=== PATIENT | female | born 1990 | race Caucasian/White ===

== ENCOUNTER 2023-03-05 20:17 | Inpatient (IN) ==
[2023-03-05 22:03] LABS: Albumin Globulin Ratio 1.5 (0.9-2); Albumin Level 4.3 gm/dl (3.4-5.0); BUN Creatinine Ratio 18.3 (10-20); Bilirubin,Total 0.5 mg/dl (0.2-1.0); Calcium 9.4 mg/dl (8.6-10.3); Est GFR (African American) 128.8 ml/min; Est GFR (Non-African American) 111.1 ml/min; Globulin 2.9 gm/dl (2.5-4.0); Potassium 3.9 mmol/L (3.5-5.1); Total Protein 7.2 gm/dl (6.0-8.3)
[2023-03-05 22:16] LABS: Specific Gravity Urine 1.021 (1.000-1.030)
[2023-03-05 22:17] LABS: Appearance Urine Slightly Cloudy (Clear); Color Urine Orange
[2023-03-05 22:23] LABS: Bacteria Urine 1+ (Negative)
[2023-03-05] MEDS ORDERED: LORazepam 2 MG/1 ML VIAL IV STA (22:26)
[2023-03-05 22:36] LABS: Basophils # (auto) 0.05 K/uL (0-0.2); Basophils % (auto) 0.5 %; Hematocrit (blood only) 43.2 % (37.0-47.0); Immature Granulocytes # (auto) 0.04 K/uL (0.01-0.20); Immature Granulocytes % (auto) 0.4 %; Lymphocytes # (auto) 3.06 K/uL (1.2-3.4); Lymphocytes % (auto) 30.2 %; Mean Corpuscular Hemoglobin 30.9 pg (25.0-34.0); Mean Corpuscular Hgb Conc 34.7 g/dL (32.0-36.0); Mean Corpuscular Volume 89.1 fL (80.0-100.0); Mean Platelet Volume 10.2 fL (9.4-12.4); Monocytes # (auto) 0.65 K/uL (0.11-0.59); Monocytes % (auto) 6.4 %; Neutrophils # (auto) 6.03 K/uL (1.40-6.50); Neutrophils % (auto) 59.5 %; Platelet Count 269 K/uL (130-400); RDW Coefficient of Variation 12.6 % (11.5-14.5); RDW Standard Deviation 41.2 fL (36.4-46.3); Red Blood Count 4.85 M/uL (4.20-5.40); White Blood Count 10.13 K/ul (4.8-10.8)
[2023-03-05] MEDS ORDERED: ONDANSETRON INJ 2 MG/ML 2 ML VIAL ONE (22:44)
[2023-03-05] MEDS: HYDROmorphone INJ 0.5 MG/0.5 ML SYR IV PRN ×2 (22:49→23:37)
--- NOTE | 2023-03-06 00:05 | Emergency Department Note ---
History of Present Illness General Chief complaint: Back Injury/Pain Stated complaint: BACK PAIN,BLOOD IN CATHETER Time Seen by Provider: 03/05/23 22:16 History of Present Illness Maximum Pain Intensity: 7 This 32-year-old female presents ER complaining of severe back pain with leg weakness that is gotten progressively worse. Patient states many years ago she had back surgery down to [place]. She went to [facility] yesterday and had a Gutierrez placed as she had urinary incontinence. Patient denies fall, chest pain, dyspnea, fevers, IV drug abuse. Home Medications Medication Instructions Recorded Confirmed Type citalopram 20 mg tablet 20 mg PO DAILY 01/12/23 03/05/23 History lorazepam 0.5 mg tablet 0.5 mg PO TID 01/12/23 03/05/23 History magnesium oxide 400 mg (241.3 mg 400 mg PO DAILY 01/12/23 03/05/23 History magnesium) tablet prazosin 2 mg capsule 2 mg PO HS 01/12/23 03/05/23 History omeprazole 40 mg capsule,delayed 40 mg PO DAILY #30 caps 01/29/23 03/05/23 Rx release aripiprazole 15 mg tablet 15 mg PO HS 03/05/23 03/05/23 History clindamycin HCl 150 mg capsule 150 mg PO TID 03/05/23 03/05/23 History gabapentin 300 mg capsule 300 mg PO UD 03/05/23 03/05/23 History meclizine 25 mg tablet 25 mg PO Q6 PRN Dizziness 03/05/23 03/05/23 History nicotine 21 mg/24 hr daily 1 patch transdermal UD 03/05/23 03/05/23 History transdermal patch sodium chloride 0.65 % nasal spray 1 spray intranasal UD 03/05/23 03/05/23 History aerosol (Deep Sea Nasal) Allergies Allergy/AdvReac Type Severity Reaction Status Date / Time amoxicillin Allergy Intermediate Hives Verified 01/29/23 15:28 Penicillins Allergy Intermediate Hives Verified 01/29/23 15:28 ketorolac [From Toradol] AdvReac Intermediate Vomiting Verified 01/29/23 15:28 Past Med/Surg History Medical History Cocaine abuse in remission Depression Drug-seeking behavior Malingering Marijuana use Surgical History H/O tubal ligation History of left oophorectomy Family History Aunt Colorectal cancer Ovarian cancer Denies family history of Prostate cancer Myocardial infarction Breast cancer Social History Smoking Status: Current every day smoker Tobacco Type: E-cigarettes / Vaping Preferred Language: Belarusian Feels Safe at Home: No Review of Systems A total of 10 systems reviewed and were otherwise negative Physical Exam Vital Signs Vital Signs - 24 hr 03/05/23 20:22 03/05/23 20:57 03/05/23 21:30 Temperature 36.6 C Temperature Source Temporal Artery Scan Pulse Rate 106 H 79 Pulse Rate [Apical] 82 Pulse Rate from SpO2 Sensor 80 Pulse Rhythm [Apical] Regular Pulse Strength [Apical] Normal Respiratory Rate 20 19 20 Respiratory Effort / Characteristics Non-Labored Non-Labored Respiratory Depth Normal Normal Respiratory Pattern Regular Blood Pressure 132/89 112/79 Blood Pressure [Right Arm] 114/81 Blood Pressure Mean 103 90 Blood Pressure Mean [Right Arm] 92 Blood Pressure Position [Right Arm] Sitting Pulse Oximetry 98 95 96 Oxygen Delivery Method Room Air Room Air Sepsis Recent Fever Within 48 Hours No Sepsis New/Unexplained Change in Mental Status No Sepsis Action Taken by Nursing No Action Required 03/05/23 22:00 03/05/23 21:06 03/06/23 01:21 Temperature Temperature Source Pulse Rate 77 79 108 H Pulse Rate [Apical] Pulse Rate from SpO2 Sensor 77 Pulse Rhythm [Apical] Pulse Strength [Apical] Respiratory Rate 19 Respiratory Effort / Characteristics Respiratory Depth Respiratory Pattern Blood Pressure 121/76 Blood Pressure [Right Arm] Blood Pressure Mean 91 Blood Pressure Mean [Right Arm] Blood Pressure Position [Right Arm] Pulse Oximetry 96 Oxygen Delivery Method Sepsis Recent Fever Within 48 Hours Sepsis New/Unexplained Change in Mental Status Sepsis Action Taken by Nursing VITALS: Vitals are noted on the nurse's note and reviewed by myself. Vital signs stable. GENERAL: White female, in no acute distress, nondiaphoretic, well-developed well-nourished. SKIN: The skin was without rashes, erythema, edema, or bruising. There is no tenting of the skin. Capillary reflex less than 2 seconds. HEAD: Normocephalic atraumatic. EARS: External auditory canals clear, EYES: Pupils equal round and reactive to light and accommodation. Conjunctivae without injection, sclerae without icterus. Extraocular movements intact. NOSE: Patent, turbinates without inflammation or discharge. MOUTH: Mucous membranes moist. Pharynx without erythema or exudate. Uvula midline. Airway patent. Tongue does not deviate. NECK: Supple without nuchal rigidity. No lymphadenopathy. No thyromegaly. Cervical spine is nontender. No JVD. HEART: Regular rate and rhythm LUNGS: Clear to auscultation bilaterally without wheezes, rales or rhonchi. No retractions or accessory muscle use. ABDOMEN: Positive bowel sounds x 4. Normal tympanic percussion. Soft, nontender, without masses or organomegaly. Fischer sign negative. No guarding or rebound tenderness. No CVA tenderness MUSCULOSKELETAL: No muscle atrophy, erythema, or edema noted. 5-5 strength throughout. Patient plantarflex and dorsiflex NEURO: Patient was alert and oriented to person place and time. Normal sensation to light and sharp touch. No focal neurological deficits. Course Administered Medications Hydromorphone HCl (Hydromorphone Inj 0.5 Mg/0.5 Ml Syr) 0.5 mg IV Q15M PRN PRN Reason: Pain Stop: 03/19/23 22:25 Last Admin: 03/06/23 01:25 Dose: 0.5 mg Documented By: Admin: 03/05/23 23:37 Dose: 0.5 mg Documented By: Admin: 03/05/23 22:49 Dose: 0.5 mg Documented By: CAYDEN Discontinued Medications Lorazepam (Lorazepam 2 Mg/1 Ml Vial) 1 mg IV NOW STA Stop: 03/05/23 22:27 Last Admin: 03/05/23 22:55 Dose: 1 mg Documented By: CAYDEN Ondansetron HCl (Ondansetron Inj 2 Mg/Ml 2 Ml Vial) Confirm Administered Dose 4 mg .ROUTE .STK-MED ONE Stop: 03/05/23 22:45 Last Admin: 03/05/23 22:46 Dose: 4 mg Documented By: CAYDEN Medical Decision Making Medical Records Attestation: I reviewed the patient's medical records. Home Medications Current Medication List: was personally reviewed by me Laboratory Data Attestation: I reviewed the patient's lab results. 03/05/23 21:14 03/05/23 21:14 Lab Results 03/05/23 03/05/23 03/05/23 Range/Units 21:14 21:14 21:53 WBC 10.13 (4.8-10.8) K/ul RBC 4.85 (4.20-5.40) M/uL Hgb 15.0 (12.0-16.0) g/dl Hct 43.2 (37.0-47.0) % MCV 89.1 (80.0-100.0) fL MCH 30.9 (25.0-34.0) pg MCHC 34.7 (32.0-36.0) g/dL RDW Std Deviation 41.2 (36.4-46.3) fL RDW Coeff of Sandra 12.6 (11.5-14.5) % Plt Count 269 (130-400) K/uL MPV 10.2 (9.4-12.4) fL Immature Gran % (Auto) 0.4 % Neut % (Auto) 59.5 % Lymph % (Auto) 30.2 % [place] % (Auto) 6.4 % Eos % (Auto) 3.0 % Baso % (Auto) 0.5 % Neut # (Auto) 6.03 (1.40-6.50) K/uL Lymph # (Auto) 3.06 (1.2-3.4) K/uL [place] # (Auto) 0.65 H (0.11-0.59) K/uL Eos # (Auto) 0.30 (0-0.50) K/uL Baso # (Auto) 0.05 (0-0.2) K/uL Immature Gran # (Auto) 0.04 (0.01-0.20) K/uL Sodium 139 (136-145) mmol/L Potassium 3.9 (3.5-5.1) mmol/L Chloride 106 (98-107) mmol/L Carbon Dioxide 26 (21-32) mmol/L Anion Gap 7 (3-11) BUN 13 (6-23) mg/dl Creatinine 0.71 (0.6-1.2) mg/dl Est Cr Clr Drug Dosing 124.0 ml/min Est GFR ( Amer) 128.8 ml/min Est GFR (Non-Af Amer) 111.1 ml/min BUN/Creatinine Ratio 18.3 (10-20) Glucose 106 H (70-99(Fasting)) mg/dl Calcium 9.4 (8.6-10.3) mg/dl Total Bilirubin 0.5 (0.2-1.0) mg/dl AST 10 L (13-39) U/L ALT 13 (7-52) U/L Alkaline Phosphatase 64 (34-104) U/L Total Protein 7.2 (6.0-8.3) gm/dl Albumin 4.3 (3.4-5.0) gm/dl Globulin 2.9 (2.5-4.0) gm/dl Albumin/Globulin Ratio 1.5 (0.9-2) Urine Color [place] Urine Appearance Slightly Cloudy (Clear) Urine pH (4.5-7.5) Ur Specific [place] 1.021 (1.000-1.030) Urine Protein (Negative) Urine Glucose (UA) (Negative) Urine Ketones (Negative) Urine Blood (Negative) Urine Nitrite (Negative) Urine Bilirubin (Negative) Urine Urobilinogen (Negative) Ur Leukocyte Esterase (Negative) Urine RBC 10-30 H (0-4) /hpf Urine WBC 5-10 H (0-5) /hpf Ur Epithelial Cells 5-10 H (0-5) /lpf Urine Bacteria 1+ H (Negative) Urine Yeast Present A (None Prsent) POC Ur Test (NEG) 03/05/23 Range/Units 21:56 WBC (4.8-10.8) K/ul RBC (4.20-5.40) M/uL Hgb (12.0-16.0) g/dl Hct (37.0-47.0) % MCV (80.0-100.0) fL MCH (25.0-34.0) pg MCHC (32.0-36.0) g/dL RDW Std Deviation (36.4-46.3) fL RDW Coeff of Sandra (11.5-14.5) % Plt Count (130-400) K/uL MPV (9.4-12.4) fL Immature Gran % (Auto) % Neut % (Auto) % Lymph % (Auto) % [place] % (Auto) % Eos % (Auto) % Baso % (Auto) % Neut # (Auto) (1.40-6.50) K/uL Lymph # (Auto) (1.2-3.4) K/uL [place] # (Auto) (0.11-0.59) K/uL Eos # (Auto) (0-0.50) K/uL Baso # (Auto) (0-0.2) K/uL Immature Gran # (Auto) (0.01-0.20) K/uL Sodium (136-145) mmol/L Potassium (3.5-5.1) mmol/L Chloride (98-107) mmol/L Carbon Dioxide (21-32) mmol/L Anion Gap (3-11) BUN (6-23) mg/dl Creatinine (0.6-1.2) mg/dl Est Cr Clr Drug Dosing ml/min Est GFR ( Amer) ml/min Est GFR (Non-Af Amer) ml/min BUN/Creatinine Ratio (10-20) Glucose (70-99(Fasting)) mg/dl Calcium (8.6-10.3) mg/dl Total Bilirubin (0.2-1.0) mg/dl AST (13-39) U/L ALT (7-52) U/L Alkaline Phosphatase (34-104) U/L Total Protein (6.0-8.3) gm/dl Albumin (3.4-5.0) gm/dl Globulin (2.5-4.0) gm/dl Albumin/Globulin Ratio (0.9-2) Urine Color Urine Appearance (Clear) Urine pH (4.5-7.5) Ur Specific [place] (1.000-1.030) Urine Protein (Negative) Urine Glucose (UA) (Negative) Urine Ketones (Negative) Urine Blood (Negative) Urine Nitrite (Negative) Urine Bilirubin (Negative) Urine Urobilinogen (Negative) Ur Leukocyte Esterase (Negative) Urine RBC (0-4) /hpf Urine WBC (0-5) /hpf Ur Epithelial Cells (0-5) /lpf Urine Bacteria (Negative) Urine Yeast (None Prsent) POC Ur Test NEG (NEG) Imaging Data Attestation: I personally reviewed and interpreted this imaging study as follows: Radiologist's Impression: Lumbar Spine MRI 03/05/23 22:26 Exam(s): MRI L SPINE Without Contrast EXAM: MR Lumbar Spine Without Intravenous Contrast CLINICAL HISTORY: Reason for exam: cant walk. TECHNIQUE: Magnetic resonance images of the lumbar spine without intravenous contrast in multiple planes. COMPARISON: No relevant prior studies available. FINDINGS: Vertebrae: There are 5 lumbar type vertebral bodies. No acute fracture. Normal alignment with preservation of vertebral body heights. No abnormal bone marrow signal. Spinal cord: The conus ends at T12-L1. Soft tissues: Unremarkable. DISCS/SPINAL CANAL/NEURAL FORAMINA: L1-L2: Unremarkable. No significant disc disease. No stenosis. L2-L3: Unremarkable. No significant disc disease. No stenosis. L3-L4: Unremarkable. No significant disc disease. No stenosis. L4-L5: Unremarkable. No significant disc disease. No stenosis. L5-S1: Disc desiccation with central posterior disc protrusion without significant spinal canal or neural foramen stenosis. IMPRESSION: No acute findings in the lumbar spine. No evidence of cauda equina syndrome. Electronically signed by: Scar Hale M.D. 03/06/23 00:36 AM MDM Narrative Prior records/ancillary studies reviewed. Triage Nursing notes reviewed. Additional history obtained from nursing. The patient's history was concerning for back pain. Differential diagnosis: Etiologies such as musculoskeletal, disc herniation, fracture, aortic disease, metastatic disease, cord compression, discitis, infection, renal colic, gastrointestinal, acute exacerbation of chronic back pain, sciatica, cauda equina, as well as others were entertained. Physical findings: As above. ER treatment provided: Dilaudid Ativan Zofran ordered On reassessment the patient felt better. Diagnostics interpreted by me: The labs Independently Interpreted by myself revealed no worrisome leukocytosis, negative urine, negative hCG Imaging studies: MRI of the L-spine was reviewed by myself and read by radiology with no signs of surgical emergency per my independent interpretation Brain MRI ordered for possible MS at time of admission Consultation: A consultation was placed with hospitalist. The case was discussed and diagnostics were reviewed. Patient will be evaluated for admission. This appears to be consistent with intractable back pain with difficulty a mbulating and frequent falls. Labs and diagnostics were independent interpreted by myself. Radiology read the MRI. Patient was able to move all extremities. She had a Gutierrez placed at [facility] yesterday. She is complaining of intractable back pain. Medicine was consulted and the case was discussed. Patient will be admitted to the medical service. By the evaluation outlined above emergent etiologies such as fracture, aortic disease, metastatic disease, infection, renal colic, gastrointestinal, cord compression, cauda equina, as well as others were deemed relatively unlikely. The pt informed about the findings as listed above. All questions were answered and pleased with the treatment. The chart was completed utilizing [employer] Speech voice recognition software. Grammatical errors, random word insertions, pronoun errors, and incomplete sentences are an occassional consequence of this system due to software limitations, ambient noise, and hardware issues. Any formal questions or concerns about the content, text, or information contained within the body of this dictation should be directly addressed to the physician environmental services assistant for clarification. Impression & Plan Lumbar radiculopathy, Intractable back pain Discharge Plan Visit Data Chief Complaint: Back Injury/Pain Stated Complaint: BACK PAIN,BLOOD IN CATHETER ED Provider: Elizabeth Snyder ED Midlevel Provider: Coco Reed Discharge Problem: Lumbar radiculopathy, Intractable back pain Patient Disposition: Being Evaluated by Hospitalist Condition: Fair Forms Stand Alone Forms: [facility] Prescriptions Prescriptions: No Action omeprazole 40 mg capsule,delayed release(DR/EC) 40 mg PO DAILY Qty: 30 2RF citalopram 20 mg tablet 20 mg PO DAILY magnesium oxide 400 mg (241.3 mg magnesium) tablet 400 mg PO DAILY lorazepam 0.5 mg tablet 0.5 mg PO TID prazosin 2 mg capsule 2 mg PO HS gabapentin 300 mg capsule 300 mg PO UD aripiprazole 15 mg tablet 15 mg PO HS clindamycin HCl 150 mg capsule 150 mg PO TID Rx Instructions: take for 10 days...start 02/26/23 nicotine 21 mg/24 hr patch 24 hour 1 patch transdermal UD Deep Sea Nasal 0.65 % aerosol,spray 1 spray INTRANASAL UD meclizine 25 mg tablet 25 mg PO Q6 PRN (Reason: Dizziness) Referrals Referrals: Cammy Walker DO [Primary Care Provider] -
--- NOTE | 2023-03-06 00:36 | Magnetic Resonance Report ---
Exam(s): MRI L SPINE Without Contrast EXAM: MR Lumbar Spine Without Intravenous Contrast CLINICAL HISTORY: Reason for exam: cant walk. TECHNIQUE: Magnetic resonance images of the lumbar spine without intravenous contrast in multiple planes. COMPARISON: No relevant prior studies available. FINDINGS: Vertebrae: There are 5 lumbar type vertebral bodies. No acute fracture. Normal alignment with preservation of vertebral body heights. No abnormal bone marrow signal. Spinal cord: The conus ends at T12-L1. Soft tissues: Unremarkable. DISCS/SPINAL CANAL/NEURAL FORAMINA: L1-L2: Unremarkable. No significant disc disease. No stenosis. L2-L3: Unremarkable. No significant disc disease. No stenosis. L3-L4: Unremarkable. No significant disc disease. No stenosis. L4-L5: Unremarkable. No significant disc disease. No stenosis. L5-S1: Disc desiccation with central posterior disc protrusion without significant spinal canal or neural foramen stenosis. IMPRESSION: No acute findings in the lumbar spine. No evidence of cauda equina syndrome. Electronically signed by: Scar Hale M.D. 03/06/23 00:36 AM
[2023-03-06] MEDS: HYDROmorphone INJ 0.5 MG/0.5 ML SYR IV PRN ×6 (01:25→14:45)
--- NOTE | 2023-03-06 02:24 | History & Physical Report ---
Date of Service March 06, 2023 Assessment & Plan (1) Low back pain: Plan: 32 F with history of lumbar radiculopathy who presents with worsening back pain and incontinence since yesterday. Lower back pain/urinary incontinence -Acute. Afebrile. No leukocytosis. MRI imaging of lumbar spine has been negative for herniation, stenosis or other structural abnormality. -Differential includes lumbar stenosis/radiculopathy, cauda equina or other neuromuscularly degenerative process (i.e. multiple sclerosis). Unclear given absence of MRI findings (lumbar spine, brain). -History of back surgery done last year, though do not have those records for review. -Presented to [place] ED yesterday with complaints of back pain and urinary incontinence MRI lumbar spine, T-spine done there both negative for acute abnormality. Similar findings on MRI lumbar spine done here. -PDMP shows recent prescription for oxycodone 5 mg, and Percocet since 02/17/2023. -S/p IV hydromorphone, lorazepam in the ED. * Admit to MedSurg * MRI brain pending * Procalcitonin, CRP pending * Pain control with IV Tylenol 1000 mg every 8 hours as needed; as needed IV Dilaudid for breakthrough pain. * IV Zofran as needed for nausea * Gutierrez catheter in place for incontinence * Consider orthopedic, neurology consult GERD -Controlled on omeprazole 40 mg daily. * Pantoprazole 40 mg daily Other chronic conditions: Continue home meds. Code: Full code Dispo: Med-Surg FEN/GI: NPO. DVT Prophylaxis: None PT/OT: No Consults: Case Management: (2) Incontinence of urine: (3) GERD (gastroesophageal reflux disease): (4) Lumbar radiculopathy: History of Present Illness Primary Care Provider: DO Jaquelin Packhann is a 32-year-old woman with past medical history of lumbar radiculopathy s/p back surgery last year, GERD, malingering and drug abuse in remission, who presents today with severe progressive back pain. She denies recent trauma, recent IV drug use, or fevers. She was evaluated at [facility] yesterday for urinary incontinence Gutierrez was eventually placed for management. In the ED, vitals were notable for mild sinus tachycardia in the low 100s. MRI of the lumbar spine was negative for any acute abnormality. She received IV lorazepam 1 mg, and Zofran for nausea as well as IV Dilaudid. Hospitalist service was then consulted for admission. On admission, she reports 9/10 low back pain, nausea, and right anteromedial thigh numbness. She denies headache, chest pain, dysuria. Allergies Allergy/AdvReac Type Severity Reaction Status Date / Time amoxicillin Allergy Intermediate Hives Verified 01/29/23 15:28 Penicillins Allergy Intermediate Hives Verified 01/29/23 15:28 ketorolac [From Toradol] AdvReac Intermediate Vomiting Verified 01/29/23 15:28 Home Medications Medication Instructions Recorded Confirmed Type citalopram 20 mg tablet 20 mg PO DAILY 01/12/23 03/05/23 History lorazepam 0.5 mg tablet 0.5 mg PO TID 01/12/23 03/05/23 History magnesium oxide 400 mg (241.3 mg 400 mg PO DAILY 01/12/23 03/05/23 History magnesium) tablet prazosin 2 mg capsule 2 mg PO HS 01/12/23 03/05/23 History omeprazole 40 mg capsule,delayed 40 mg PO DAILY #30 caps 01/29/23 03/05/23 Rx release aripiprazole 15 mg tablet 15 mg PO HS 03/05/23 03/05/23 History clindamycin HCl 150 mg capsule 150 mg PO TID 03/05/23 03/05/23 History gabapentin 300 mg capsule 300 mg PO UD 03/05/23 03/05/23 History meclizine 25 mg tablet 25 mg PO Q6 PRN Dizziness 03/05/23 03/05/23 History nicotine 21 mg/24 hr daily 1 patch transdermal UD 03/05/23 03/05/23 History transdermal patch sodium chloride 0.65 % nasal spray 1 spray intranasal UD 03/05/23 03/05/23 History aerosol (Deep Sea Nasal) Past Med/Surg History Medical History Cocaine abuse in remission Depression Drug-seeking behavior Malingering Marijuana use Surgical History H/O tubal ligation History of left oophorectomy Family History Aunt Colorectal cancer Ovarian cancer Denies family history of Prostate cancer Myocardial infarction Breast cancer Social History Smoking Status: Current every day smoker Tobacco Type: E-cigarettes / Vaping Second Hand Exposure: No; Do You Dip or Chew Tobacco: No; Hx Alcohol Use: No Hx Substance Use: No Preferred Language: Malay Communication Ability: Effective News Correspondent Required: No Beliefs That Will Affect Care: None Current Living Situation: Family Feels Safe at Home: Yes Assistive Devices: None Review of Systems Review of Systems: All systems reviewed & are unremarkable except as noted in HPI & below Physical Exam Physical Exam: General: No acute distress. Gutierrez catheter in place. HEENT: PERRLA. Normal conjunctiva, anicteric sclera. Oropharynx normal. Respiratory: Normal respiratory effort, CTABL. Cardiovascular: RRR without murmurs, gallops, or rubs. No pedal edema. Back: Midline spinal tenderness to palpation elicited from the level of L4-S1. Neuro: Alert and oriented x3. 4/5 flexion strength at right hip. 4/5 right hand diesel mechanic apprentice strength. CN II-XII intact bilaterally. Results & Data Results & Data Vital Signs (Past 12 Hours) Vital Signs Temp Pulse Pulse Resp BP BP Pulse Ox 03/06/23 01:21 108 H 03/05/23 21:06 79 03/05/23 22:00 77 19 121/76 96 03/05/23 21:30 79 20 112/79 96 03/05/23 20:57 82 19 114/81 95 03/05/23 20:22 36.6 C 106 H 20 132/89 98 O2 Del Method 03/06/23 01:21 03/05/23 21:06 03/05/23 22:00 03/05/23 21:30 03/05/23 20:57 Room Air 03/05/23 20:22 Room Air Laboratory Results 03/05/23 03/05/23 03/05/23 Range/Units 21:56 21:53 21:14 WBC (4.8-10.8) K/ul RBC (4.20-5.40) M/uL Hgb (12.0-16.0) g/dl Hct (37.0-47.0) % MCV (80.0-100.0) fL MCH (25.0-34.0) pg MCHC (32.0-36.0) g/dL RDW Std Deviation (36.4-46.3) fL RDW Coeff of Sandra (11.5-14.5) % Plt Count (130-400) K/uL MPV (9.4-12.4) fL Immature Gran % (Auto) % Neut % (Auto) % Lymph % (Auto) % [place] % (Auto) % Eos % (Auto) % Baso % (Auto) % Neut # (Auto) (1.40-6.50) K/uL Lymph # (Auto) (1.2-3.4) K/uL [place] # (Auto) (0.11-0.59) K/uL Eos # (Auto) (0-0.50) K/uL Baso # (Auto) (0-0.2) K/uL Immature Gran # (Auto) (0.01-0.20) K/uL Sodium 139 (136-145) mmol/L Potassium 3.9 (3.5-5.1) mmol/L Chloride 106 (98-107) mmol/L Carbon Dioxide 26 (21-32) mmol/L Anion Gap 7 (3-11) BUN 13 (6-23) mg/dl Creatinine 0.71 (0.6-1.2) mg/dl Est Cr Clr Drug Dosing 124.0 ml/min Est GFR ( Amer) 128.8 ml/min Est GFR (Non-Af Amer) 111.1 ml/min BUN/Creatinine Ratio 18.3 (10-20) Glucose 106 H (70-99(Fasting)) mg/dl Calcium 9.4 (8.6-10.3) mg/dl Total Bilirubin 0.5 (0.2-1.0) mg/dl AST 10 L (13-39) U/L ALT 13 (7-52) U/L Alkaline Phosphatase 64 (34-104) U/L Total Protein 7.2 (6.0-8.3) gm/dl Albumin 4.3 (3.4-5.0) gm/dl Globulin 2.9 (2.5-4.0) gm/dl Albumin/Globulin Ratio 1.5 (0.9-2) Urine Color [place] Urine Appearance Slightly Cloudy (Clear) Urine pH (4.5-7.5) Ur Specific Silva 1.021 (1.000-1.030) Urine Protein (Negative) Urine Glucose (UA) (Negative) Urine Ketones (Negative) Urine Blood (Negative) Urine Nitrite (Negative) Urine Bilirubin (Negative) Urine Urobilinogen (Negative) Ur Leukocyte Esterase (Negative) Urine RBC 10-30 H (0-4) /hpf Urine WBC 5-10 H (0-5) /hpf Ur Epithelial Cells 5-10 H (0-5) /lpf Urine Bacteria 1+ H (Negative) Urine Yeast Present A (None Prsent) POC Ur Test NEG (NEG) 03/05/23 Range/Units 21:14 WBC 10.13 (4.8-10.8) K/ul RBC 4.85 (4.20-5.40) M/uL Hgb 15.0 (12.0-16.0) g/dl Hct 43.2 (37.0-47.0) % MCV 89.1 (80.0-100.0) fL MCH 30.9 (25.0-34.0) pg MCHC 34.7 (32.0-36.0) g/dL RDW Std Deviation 41.2 (36.4-46.3) fL RDW Coeff of Sandra 12.6 (11.5-14.5) % Plt Count 269 (130-400) K/uL MPV 10.2 (9.4-12.4) fL Immature Gran % (Auto) 0.4 % Neut % (Auto) 59.5 % Lymph % (Auto) 30.2 % [place] % (Auto) 6.4 % Eos % (Auto) 3.0 % Baso % (Auto) 0.5 % Neut # (Auto) 6.03 (1.40-6.50) K/uL Lymph # (Auto) 3.06 (1.2-3.4) K/uL [place] # (Auto) 0.65 H (0.11-0.59) K/uL Eos # (Auto) 0.30 (0-0.50) K/uL Baso # (Auto) 0.05 (0-0.2) K/uL Immature Gran # (Auto) 0.04 (0.01-0.20) K/uL Sodium (136-145) mmol/L Potassium (3.5-5.1) mmol/L Chloride (98-107) mmol/L Carbon Dioxide (21-32) mmol/L Anion Gap (3-11) BUN (6-23) mg/dl Creatinine (0.6-1.2) mg/dl Est Cr Clr Drug Dosing ml/min Est GFR ( Amer) ml/min Est GFR (Non-Af Amer) ml/min BUN/Creatinine Ratio (10-20) Glucose (70-99(Fasting)) mg/dl Calcium (8.6-10.3) mg/dl Total Bilirubin (0.2-1.0) mg/dl AST (13-39) U/L ALT (7-52) U/L Alkaline Phosphatase (34-104) U/L Total Protein (6.0-8.3) gm/dl Albumin (3.4-5.0) gm/dl Globulin (2.5-4.0) gm/dl Albumin/Globulin Ratio (0.9-2) Urine Color Urine Appearance (Clear) Urine pH (4.5-7.5) Ur Specific Silva (1.000-1.030) Urine Protein (Negative) Urine Glucose (UA) (Negative) Urine Ketones (Negative) Urine Blood (Negative) Urine Nitrite (Negative) Urine Bilirubin (Negative) Urine Urobilinogen (Negative) Ur Leukocyte Esterase (Negative) Urine RBC (0-4) /hpf Urine WBC (0-5) /hpf Ur Epithelial Cells (0-5) /lpf Urine Bacteria (Negative) Urine Yeast (None Prsent) POC Ur Test (NEG) Supervising Physician Co-Signing Physician Notes Attending addendum: I have physically seen this patient, have supervised the medical residents activities, and agree with the H&P unless as otherwise noted. Assessment and Plan: Intractable low back pain- Imaging revealing T3-4 disc herniation, and small L5-S1 disc herniation, but not significantly different from previous imaging Urinary incontinence Had Gutierrez catheter placed at [facility] Order MRI of brain MS protocol, due to constellation of symptoms Pain management: Acetaminophen 1 g IV every 8 hours as needed for mild pain or fever Dilaudid IV every 4 hours as needed breakthrough pain Consult to neurology if symptoms are persistent Resident Activity Tracking Resident Involvement: Resident Care Provided Care Provided: [facility]
--- NOTE | 2023-03-06 04:10 | Magnetic Resonance Report ---
Exam(s): MRI HEAD Without Contrast EXAM: MR Head Without Intravenous Contrast CLINICAL HISTORY: Reason for exam: cant walk, legs weak. TECHNIQUE: Magnetic resonance images of the head/brain without intravenous contrast in multiple planes. COMPARISON: No relevant prior studies available. FINDINGS: Brain: Unremarkable. No mass. No hemorrhage. No acute infarct. Ventricles: Unremarkable. No ventriculomegaly. Bones/joints: Unremarkable. Sinuses: Unremarkable as visualized. No acute sinusitis. Mastoid air cells: Unremarkable as visualized. No mastoid effusion. Orbits: Unremarkable as visualized. IMPRESSION: Normal head/brain MRI. Electronically signed by: Scar Hale M.D. 03/06/23 04:09 AM
[2023-03-06] MEDS ORDERED: MECLIZINE HCL 25 MG TAB PO PRN (04:34)
[2023-03-06] MEDS ORDERED: MELATONIN 3 MG TAB PO PRN (04:34)
[2023-03-06] MEDS ORDERED: HYDROmorphone INJ 0.5 MG/0.5 ML SYR IV PRN (04:34)
[2023-03-06] MEDS ORDERED: SODIUM CHLORIDE 0.65% NA SOLN 45 ML (OCEAN) PRN (04:34)
[2023-03-06] MEDS: ACETAMINOPHEN 500 MG TAB PO SCH ×2 (05:16→13:27)
[2023-03-06 06:15] LABS: Potassium 3.6 mmol/L (3.5-5.1)
[2023-03-06 06:16] LABS: BUN Creatinine Ratio 17.1 (10-20); C Reactive Protein 0.73 mg/dl (0-0.5); Calcium 8.7 mg/dl (8.6-10.3); Creatinine Clr Calc Pharmacy 125.7 ml/min
--- NOTE | 2023-03-06 07:32 | Discharge Summary ---
Date of Service March 06, 2023 Admission HPI Per Admitting Provider Feli is a 32-year-old woman with past medical history of lumbar radiculopathy s/p back surgery last year, GERD, malingering and drug abuse in remission, who presents today with severe progressive back pain. She denies recent trauma, recent IV drug use, or fevers. She was evaluated at [facility] yesterday for urinary incontinence Villalta was eventually placed for management. In the ED, vitals were notable for mild sinus tachycardia in the low 100s. MRI of the lumbar spine was negative for any acute abnormality. She received IV lorazepam 1 mg, and Zofran for nausea as well as IV Dilaudid. Hospitalist service was then consulted for admission. On admission, she reports 9/10 low back pain, nausea, and right anteromedial thigh numbness. She denies headache, chest pain, dysuria. Admission Exam Per Admitting Provider General: No acute distress. Villalta catheter in place. HEENT: PERRLA. Normal conjunctiva, anicteric sclera. Oropharynx normal. Respiratory: Normal respiratory effort, CTABL. Cardiovascular: RRR without murmurs, gallops, or rubs. No pedal edema. Back: Midline spinal tenderness to palpation elicited from the level of L4-S1. Neuro: Alert and oriented x3. 4/5 flexion strength at right hip. 4/5 right hand air traffic control specialist center strength. CN II-XII intact bilaterally. Principal Diagnosis Low back pain, urinary stress incontinence Discharge Exam General: No acute distress. Villalta catheter in place. Respiratory: Clear to auscultation Cardiovascular: RRR without murmurs Back: Midline and paraspinal tenderness noted over the lumbar spine, along with exquisite tenderness of the piriformis muscles bilaterally Discharge Data Allergies Allergy/AdvReac Type Severity Reaction Status Date / Time amoxicillin Allergy Intermediate Hives Verified 01/29/23 15:28 Penicillins Allergy Intermediate Hives Verified 01/29/23 15:28 ketorolac [From Toradol] AdvReac Intermediate Vomiting Verified 01/29/23 15:28 Consultations 03/06/23 00:59 ED Decision to Admit Stat Ordered Studies 03/05/23 22:26 MRI Lumbar Spine [MR lumbar spine wo con] Stat 03/06/23 01:31 MR brain MS wo con Stat Hospital Course (1) Low back pain: 32 F with history of lumbar radiculopathy who presents with worsening back pain and urinary incontinence. Lower back pain -Acute. Afebrile. No leukocytosis. MRI imaging of lumbar spine has been negative for herniation, stenosis or other structural abnormality. -Differential includes lumbar stenosis/radiculopathy, cauda equina or other neuromuscularly degenerative process (i.e. multiple sclerosis). Unclear given absence of MRI findings (lumbar spine, brain). -History of back surgery done last year, though do not have those records for review. -Presented to [place] ED yesterday with complaints of back pain and urinary incontinence MRI lumbar spine, T-spine done there both negative for acute abnormality. - Brain and lumbar MRI unremarkable - given physical exam, suspect this is MSK related since her fall in September, which is when she states it all happened when she fell back on the stairs at [facility] Urinary incontinence - pt notes leaking when she sneezes or coughs - pt is a , s/p 4 vaginal deliveries, started to notice some incontinence since then, worse starting 1 month ago without any inciting trauma - recommending kegel exercises and outpatient f/u - villalta removed GERD -Controlled on omeprazole 40 mg daily. * Pantoprazole 40 mg daily Other chronic conditions: Continue home meds. Code: Full code Disposition: Home (2) Incontinence of urine: (3) GERD (gastroesophageal reflux disease): (4) Lumbar radiculopathy: Total Time Total Time Spent Total Time Spent (In Minutes): >30 Discharge Plan Discharge Items Patient Disposition: Home - Self-Care Reason For Visit: BACK PAIN Discharge Diagnosis: Musculoskeletal back pain, urinary stress incontinence Condition on Discharge: Fair Activity: Resume your previous activity Non-emergency contact: Primary Care Provider Call non-emergency contact if: you have any medication questions and your symptoms worsen Follow-up/Referrals: Cammy Walker DO [Primary Care Provider] - Diet: Regular Addtl Attending Provider Instructions: You were admitted for back pain and urinary stress incontinence. After thorough examination, we believe your back pain is musculoskeletal in nature and would benefit from outpatient therapy such as osteopathic manipulation therapy (OMT). The urinary incontinence is most consistent with stress incontinence. Your villalta catheter has been removed, and we recommend you follow-up with your primary care physician to discuss treatment options for the incontinence. In the meantime, Kegel exercises may be helpful to strengthen your pelvic floor to allow you better control of your bladder. An appointment has been scheduled for you to see one of our D.O. providers on 03/19/2023 at 10:00 am at our [facility] practice at [address] [facility], [place], [address] (the building in front of the hospital). Medications: Your medication list has been reviewed and reconciled upon discharge to ensure accuracy and continuity of care. An updated list of all your medications is included with your hospital discharge paperwork. Please review this list closely, and make note of any changes. If you have any issues filling these prescriptions, please call [phone] and ask to leave a message for Dr. Motley. Take your medications as instructed; do not skip a dose of your medicines. Make sure all of your doctors know every medicine you are taking (including atcm-crr-avbtvzh medicines, vitamins, and supplements). Call your primary care provider before taking any new medicines (including over- the-counter medicines, vitamins, and supplements), because some of these may interact with your current medications, or may make your symptoms worse. Tell your primary care provider if you cannot afford your medications. Activity: You can do normal everyday activities as your body allows. Take rest breaks if you feel tired. Do not overexert. Stop activity if you have pain, shortness of breath or feel dizzy. Follow-up appointments: Make an appointment with your primary care physician within one week of discharge. A copy of this summary will be sent to them. Every time you see your primary care physician, or any other doctor, bring your medication list, a list of questions, and your recent weights. CONTACT YOUR PRIMARY CARE PROVIDER if you experience any of the following: Shortness of breath or difficulty breathing Swelling of your feet, ankles, hands or abdomen Feeling tired with normal activity or experiencing dizziness or fainting Difficulty following your treatment plan, or difficulty taking medications CALL 911 OR GO TO THE EMERGENCY DEPARTMENT if you experience any of the following: Severe abdominal pain or nausea/vomiting Severe chest pain, or chest pain that radiates (moves) to your jaw or arm Sudden, severe shortness of breath or difficulty breathing Thank you for allowing us to participate in your care. Pending Studies at Discharge: No Stand-Alone Forms: My [facility], Smoking Cessation Medications and DC Order Prescriptions: Continued omeprazole 40 mg capsule,delayed release(DR/EC) 40 mg PO DAILY Qty: 30 2RF citalopram 20 mg tablet 20 mg PO DAILY magnesium oxide 400 mg (241.3 mg magnesium) tablet 400 mg PO DAILY lorazepam 0.5 mg tablet 0.5 mg PO TID prazosin 2 mg capsule 2 mg PO HS gabapentin 300 mg capsule 300 mg PO UD aripiprazole 15 mg tablet 15 mg PO HS clindamycin HCl 150 mg capsule 150 mg PO TID Rx Instructions: take for 10 days...start 02/26/23 nicotine 21 mg/24 hr patch 24 hour 1 patch transdermal UD Deep Sea Nasal 0.65 % aerosol,spray 1 spray INTRANASAL UD meclizine 25 mg tablet 25 mg PO Q6 PRN (Reason: Dizziness) Discharge Orders: Discharge Order (Routine); Ordered 03/06/23 Ordered By: Geeta Motley Admission Data Admit Date/Time: 03/06/23 02:07 Attending Provider: Aj Garza Admit Provider: Jae Soto Primary Care Provider: Cammy Walker Other Providers: Chito Haque Other Interventions: Discharge Summary Assessment (RN) Last Done: 03/06/23 18:21 Supervising Physician Co-Signing Physician Notes I personally examined the patient and verified all naidu points of history and exam, discussed case, and agree with decision making with Dr Motley back pain. urinary symptoms more c/w stress incontinence recently worse but ongoing, has had 4 kids via vaginal delivery. back pain in lower back doesn't radiate vitals noted nad heent nc at mmm breathing unlabored no accessory muscles good effort. Musculoskeletal shows right-sided piriformis region musculature high tone, tender, decreased range of motion. Bilateral lumbar paraspinals high tone, tender, decreased range of motioninhibitory pressure/LAS done with some tissue texture improvementparticularly in the piriformis region more so than the lumbar paraspinals. Patient tolerated well. Back painappears to be predominantly muscularno evidence of cauda equina, no radicular symptoms to suggest that she has structural disease requiring surgery or injectionsseems most consistent with a biomechanical strain pattern with piriformis and lumbar paraspinals at least being involved. Voltaren gel, OMT. Trying to set up in the office for ongoing OMT. Educated patient extensively. Somatic dysfunction lumbar and pelvisOMT as above. For outpatient OMT in the office. Urinary incontinenceseems by history to be most consistent with stress incontinenceprobably made worse by her back pain and constipation increasing pressure on her bladder, exacerbating the already existing stress incontinence. After discussion with patient she thought this fit with her symptoms quite clear Brenda krishnamurthy was DC'd, she was able to void on her own. Discussed watching overnight for ongoing voiding, and to continue educating and working on her back, versus home and next OMT as an outpatientinitially she thought she would want to stay, but later opted to go home. Resident physician called the office to try to set her up with ongoing OMT. Resident Activity Tracking Resident Involvement: Resident Care Provided Care Provided: Adult Hospital Medicine
[2023-03-06] MEDS ORDERED: NICOTINE 21 MG/24 HR TDSY TD SCH (09:00)
[2023-03-06] MEDS ORDERED: MAGNESIUM OXIDE 400 MG TAB PO SCH (09:00)
[2023-03-06] MEDS ORDERED: PANTOprazole 40 MG TAB PO SCH (09:00)
[2023-03-06] MEDS ORDERED: CITALOPRAM 20 MG TAB PO SCH (09:00)
[2023-03-06] MEDS: CLINDAMYCIN HCL 150 MG CAP PO SCH ×2 (09:21→13:27)
[2023-03-06] MEDS: LORazepam 0.5 MG TAB PO SCH ×2 (09:21→13:27)
[2023-03-06] MEDS ORDERED: GABAPENTIN 300 MG CAP PO SCH (14:00)
[2023-03-06] MEDS ORDERED: ACETAMINOPHEN 500 MG TAB PO SCH (16:45)
[2023-03-06] MEDS ORDERED: MAGNESIUM SULFATE / D5W 1 GM/100 ML BAG IV SCH (16:45)
[2023-03-06] MEDS ORDERED: KETOROLAC TROMETHAMINE 15 MG/ML VIAL IV SCH (17:00)
[2023-03-06] MEDS ORDERED: DICLOFENAC SOD 1% GEL 100 GM TUBE EXT SCH (17:00)
--- NOTE | 2023-03-06 19:07 | Hospitalist Progress Note ---
Date of Service March 06, 2023 Assessment & Plan Admission and Anticipated Discharge Date Admission Date: March 06, 2023 Results & Data Results & Data Vital Signs (Past 12 Hours) Vital Signs Temp Pulse Resp BP Pulse Ox O2 Del Method 03/06/23 18:21 98.4 F 68 22 128/68 98 03/06/23 17:40 98.4 F 68 22 128/68 98 Room Air PG Care Time/CCT Total # of Minutes Spent Total Time Spent with Patient: Total time spent is greater than 50% in coordination of care (as documented) at patient's floor/unit and/or counseling patient: Coding Level of Care Code None Diagnoses CPT Codes Musculoskeletal - Musculoskeletal: [address] 1-2 Body regions ([id number])
--- NOTE | 2023-03-06 19:07 | Billing Data ---
Date of Service March 06, 2023 Coding Level of Care Code 60462 IN/OBS DISCH 30 MIN/LESS
[2023-03-06] MEDS ORDERED: ARIPiprazole 15 MG TAB PO SCH (21:00)
[2023-03-06] MEDS ORDERED: PRAZOSIN HCL 1 MG CAP PO SCH (21:00)
--- NOTE | 2023-03-08 03:06 | Billing Data ---
Date of Service March 08, 2023 Coding Level of Care Code 56712 INT INP/OBS CARE
== END 2023-03-06 18:27 | disposition home or self-care (01) | DRG 552 ==
LOC: ED 20:17 → EDINP 03-06 02:07 → SUATTDRO 03-06 02:07 → EDINP 03-06 04:34